=== PATIENT | female | born 1995 | race Caucasian/White ===

== ENCOUNTER 2022-12-03 13:33 | Outpatient (AMB) | payer OTHER, SELFPAY ==
[2022-12-03 13:36] VITALS: BMI 19.4
--- NOTE | 2022-12-03 13:36 | MHC.OFFVIS ---
Intake Vital Signs 12/03/22 13:36 Height 5 ft 2 in Weight 106 lb BMI 19.4 Intake Visit Reasons: LEGAL MEDIATOR,ANNUAL Intake Note: has been having irregular periods Property Caretaker Required: No Information Interpreted: non-clinical & clinical Remote Sensing Technologist: Remote Sensing Technologist Present (Neliyn) Allergies No Known Allergies [No Known Allergies*] Allergy (Verified 12/03/22 13:39) Medication List - Last Reconciled 12/03/22 by Nilam Gant CNM No Known Home Meds Is last menstrual period known: Yes Last menstrual period: 11/21/22 Post menopausal: No HPI LEGAL MEDIATOR,ANNUAL HPI Details 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 She had been going for care to [facility] and she kept leaking water and she says they kept telling her she was not leaking and that she did not need to be induced and then she came here to the emergency room and was evaluated here at the birthing center and says that we told her her water had broken and she needed to be induced because there was very little fluid around the baby and then the baby's heart rate kept going down so she needed a . Her 2nd she had a planned repeat and a tubal ligation. She says she saw Dr. Asif mostly through the . She said she has normally had very regular periods since and did not have any issues but the last 2 periods were very different and that they were longer than usual of lasting about 8 days the last 1 anyway and bright red the whole time rather than the normal changes of menstrual flow. She has not had bleeding at any other time other than lately she also has thought she has seen some little tiny drops of blood she also has been seen for UTIs with dysuria and burning with urination and little drops of blood and was treated for UTIs she says she gets them frequently her last eval was at urgent care through [facility]. Her primary care provider is in [place] and she has not seen her know long while either she does not have any other health problems and has not noticed any other dramatic weight gain or weight loss and has always maintained around the same weight and does not have any other health issues she says on questioning she that she has been told she was anemic in the past but that was before the . [facility] Surgical History (Updated 12/03/22 @ 13:41 by MAI Castro) Hx of section Hx of tubal ligation Female Reproductive History Menstrual Age of Menarche: 12 Duration of menses: 6-7 days Date of last menstrual period: 11/21/22 control method: other (tubal ligation) Total pregnancies: 2 Full term: 2 Number of Living Children: 2 Date of last pap smear: 09/05/18 (negative) Physical Exam Vital Signs: BMI result Body Mass Index 19.4 Const Other: Very thin frame General: healthy appearing, comfortable, no acute distress, well developed and alert Nutritional Appearance: average body habitus and thin Orientation/consciousness: patient oriented x3 Limitations: no limitations HEENT Head: Yes normocephalic Neck Neck: Yes normal visual inspection Chest Chest palpation & inspection: normal inspection of the chest Breast/axilla inspection: normal inspection of the breasts and normal inspection of the axillae Breast/axilla palpation: normal palpation of the breasts and normal palpation of the axillae Resp Effort & Inspection: normal respiratory effort GI Inspection: Yes normal to inspection, No Abdominal wall edema and No distended Palpation (GI): Soft to palpation and nontender Other: Vagina pink and moist normal appearing. Cervix multiparous pink normal no lesions other than 1 small nabothian cyst no polyp seen in cervix no friability with Pap either uterus is small anteverted to midposition mobile nontender adnexa nontender not enlarged fair tone with Kegel. General: Yes bladder normal to palpation External Female Exam: normal external appearance and normal appearance of the urethra Speculum Exam - Vagina: normal appearance of the vagina, normal palpation and normal vaginal discharge Speculum Exam - Cervix: normal appearance of the cervix, normal palpation and nontender Bimanual exam- vagina & uterus: normal bimanual exam, normal palpation, uterine size normal, bladder normal to palpation, consistency normal, normal palpation, uterine mobility normal, uterine shape normal, No Cervical tenderness present, non-tender and no cervical motion tenderness Bimanual Exam- Adnexa, other: normal adnexae, no masses, normal and No adnexal tenderness Neuro General: patient oriented x3 Assessment & Plan Assessment & Plan (1) Well woman exam with routine gynecological exam: Code(s): Z01.419 - Encounter for gynecological examination (general) (routine) without abnormal findings (2) Cervical cancer screening: Code(s): Z12.4 - Encounter for screening for malignant neoplasm of cervix (3) Menorrhagia with regular cycle: Comment: Her last 2 cycles were longer and brighter red than usual Code(s): N92.0 - Excessive and frequent menstruation with regular cycle Plan -----Discussed in this visit the following: healthy balanced diet, regular and consistent exercise, getting recommended health screens, doing the best she can for her particular health concerns, kegel exercises, pap smear screening and followup recommendations, mammography screening and SBE, normal changes in cycles in her life stage--- . Much of the visit was spent going over the detail of her bleeding and her E history of UTIs and how it can be challenging figuring out what system is involved be it rigging and controls aircraft mechanic or urinary. discussed the confluence of symptoms discussed the possibility of something within the uterus that could be explaining her bright red bleeding will evaluate by ultrasound for the possible presence of polyps or other finding that could explain her periods we will have a visit after that to review the findings additionally I am ordering a CBC and thyroid level to stay make sure she is not anemic and check on the thyroid function. She does not have any laxity of muscle is function but I am going to send her information about Kegel's. Orders: Orders Complete Blood Count no Diff Today N92.0 - Excessive and frequent menstruation with regular cycle, Z01.419 - Encounter for gynecological examination (general) (routine) without abnormal findings US pelvic and transvaginal Today N92.0 - Excessive and frequent menstruation with regular cycle, Z01.419 - Encounter for gynecological examination (general) (routine) without abnormal findings CT NG by PCR Today Z20.2 - Contact with and (suspected) exposure to infections with a predominantly sexual mode of transmission Pap Smear Today Z12.4 - Encounter for screening for malignant neoplasm of cervix Thyroid Stimulating Hormone Today N92.0 - Excessive and frequent menstruation with regular cycle, Z01.419 - Encounter for gynecological examination (general) (routine) without abnormal findings Bacterial Vaginosis Panel Today Z20.2 - Contact with and (suspected) exposure to infections with a predominantly sexual mode of transmission Coding Level of Care Code New Pt Prev Care [id number] Diagnoses Well woman exam with routine gynecological exam Z01.419 Cervical cancer screening Z12.4 Menorrhagia with regular cycle N92.0
== END 2022-12-03 14:19 | disposition home or self-care (01) ==
PROVIDERS: Visit Provider Advanced Practice Midwife
DX: Z01.419 Encounter for gynecological examination (general) (routine) without abnormal findings (principal); Z12.4 Encounter for screening for malignant neoplasm of cervix; N92.0 Excessive and frequent menstruation with regular cycle
CPT/HCPCS: 99385

== ENCOUNTER 2022-12-03 13:33 | Outpatient (REF) | payer OTHER, SELFPAY ==
[2022-12-04 05:58] LABS: CT PCR NOT DETECTED (Not Detect.); NG PCR NOT DETECTED (Not Detect.)
[2022-12-04 11:25] LABS: BV Int Neg Control Negative (Negative); BV Int Pos Control Positive (Positive)
== END 2022-12-03 13:34 | disposition home or self-care (01) ==
LOC: HO.LNP 13:33
PROVIDERS: Visit Provider Advanced Practice Midwife
DX: Z01.419 Encounter for gynecological examination (general) (routine) without abnormal findings (principal); N92.0 Excessive and frequent menstruation with regular cycle; Z20.2 Contact with and (suspected) exposure to infections with a predominantly sexual mode of transmission
CPT/HCPCS: 0353U; 87480; 87510; 87660; 88142; 99385

== ENCOUNTER 2023-01-07 15:23 | Outpatient (REF) | payer OTHER, SELFPAY ==
--- NOTE | ~2023-01-07 | US_ITS ---
EXAMINATION: US PELVIS CLINICAL INFORMATION: Menorrhagia.LMP 12/28/2022. COMPARISON: None available. TECHNIQUE: Ultrasound of the pelvis is performed using both transabdominal and transvaginal transducers along with Doppler. Transvaginal imaging is performed due to inadequate visualization transabdominally. FINDINGS: Uterus: The uterus is anteverted and measures 8.5 x 3.9 x 6.4 cm. Prior scar. The double wall endometrial thickness is 8 mm. The uterus is smooth in contour and has normal myometrial echogenicity. No visible fibroid. Adnexa: Both ovaries are visualized. There is no pelvic ascites or fluid collection. Left-sided pelvic venous congestion. Right ovary measures 4.5 x 2.2 x 2.2 cm. Collapsing corpus luteum measures 2.0 x 1.1 x 1.4 cm. Left ovary measures 2.8 x 1.9 x 2.5 cm. US/US pelvic and transvaginal IMPRESSION: Left-sided pelvic venous congestion.
== END 2023-01-07 15:24 | disposition home or self-care (01) ==
LOC: HO.HMGCX 15:23
PROVIDERS: Visit Provider Advanced Practice Midwife
DX: N92.0 Excessive and frequent menstruation with regular cycle (principal)
CPT/HCPCS: 76830; 76856